=== PATIENT | female | born 1995 | race Caucasian/White ===

== ENCOUNTER 2022-03-26 12:17 | Inpatient (IN) | payer OTHER ==
[~2022-03-26] VITALS: Ht 165.1 cm; Wt 96.2 kg
--- NOTE | 2022-03-26 12:20 | NUR ---
Pt brought by self, A&Ox4, pt presents to ER with congestion ,weakness, bodyaches, N/V, HR 140, skin pink and warm, cap refill <3, respirations even and unlabored, will cont to monitor.
[2022-03-26 12:28] VITALS: BP_SYST 135
--- NOTE | 2022-03-26 15:00 | NUR ---
# 22 gauge angiocath placed to LEFT ANTECUBITAL. Use of asceptic technique. Opsite placed over site. Blood return noted. Blood for lab drawn from site. Flushed with 10 cc of normal saline. No evidence of infiltration noted. Patient tolerated well.
--- NOTE | 2022-03-26 15:40 | NUR ---
NASAL SWAB COLLECTED FROM BILATERAL NARES DELIVERED SPECIMEN TO LAB FOR ANALYSIS.
[2022-03-26] MEDS ORDERED: NACL 0.9% 1,000 ML IV ONE ×2 (15:45→19:00)
[2022-03-26] MEDS ORDERED: ONDANSETRON HCL 4 MG/2 ML VIAL IVP ONE ×2 (15:45→19:15)
--- NOTE | 2022-03-26 16:00 | NUR ---
Medicated per MD orders. IVF infusing with no s/s of infiltration at this time. Will cont to monitor
[2022-03-26 16:21] LABS: HEMATOCRIT 45.2 % (36-48); HEMOGLOBIN 15.6 g/dL (12.0-16.0); MEAN CORPUSCULAR HEMOGLOBIN 30 pg (27-31); MEAN CORPUSCULAR HGB CONC 34 % (32-36); MEAN CORPUSCULAR VOLUME 88 fL (79.0-98.0); PLATELET COUNT (AUTO) 371 K/uL (130-430); RED BLOOD CELL COUNT(AUTO) 5.13 MIL/uL (4.2-6.2); RED CELL DISTRIBUTION WIDTH 13.6 % (9.0-15.0)
[2022-03-26 16:40] LABS: CALCIUM 10.1 mg/dL (8.4-11.0); CREATININE 1.82 mg/dL (0.55-1.30)
[2022-03-26 16:44] LABS: ALBUMIN 3.7 g/dL (3.4-4.8); TOTAL BILIRUBIN 3.1 mg/dL (0.0-1.0)
[2022-03-26 17:32] LABS: BAND % (MANUAL) 7 % (0-6); BASOPHILS % (MANUAL) 0 % (0-2); EOSINOPHILS % (MANUAL) 0 % (0-7); LYMPHOCYTES % (MANUAL) 20 % (20-46); MONOCYTES % (MANUAL) 15 % (0-11)
--- NOTE | 2022-03-26 19:01 | NUR ---
Pt afebrile, nasal and throat swabs collected; delivered to lab for analysis.
[2022-03-26] MEDS ORDERED: DIPHENHYDRAMINE INJ 50 MG/ML VIAL IVP ONE (19:15)
[2022-03-26] MEDS ORDERED: METOCLOPRAMIDE HCL 10 MG/2 ML VIAL IVP ONE (19:15)
[2022-03-26] MEDS ORDERED: cefTRIAXone 1 GM in D5W 50 ML IV ONE (20:30)
[2022-03-26] MEDS ORDERED: ACETAMINOPHEN 325 MG TABLET PO ONE (20:45)
[2022-03-26] MEDS ORDERED: HYDROCORTISONE SOD SUCC 100 MG/2 ML VIAL IVP ONE (20:45)
--- NOTE | 2022-03-26 20:56 | NUR ---
Admit bed requested Patient will be admitted to care of Dr Beebe .. Admitted to Tele unit. Diagnosis Sepsis Inpatient (Yes or No) No Observation (Yes or No) No Orientation concerns or request close to nursing station (Yes or No) No Covid Status N/A On vent or bipap N/A Isolation requirements N/A Needs a sitter N/A From Home (Yes or if No enter name of facility) Yes Requires Dialysis (Yes or No) No Med Rec Completed (Yes of No) No
--- NOTE | 2022-03-26 21:40 | NUR ---
REC PT IN BED 8. PT AWAKE, A&O X4, LETHARGIC BUT FOLLOWING COMMANDS. 2 BOLUS NOT COMPLETED, NEW IV ACCESS TO THE LEFT WRIST. HR 133, OTHER VS WNL.
[2022-03-26] MEDS ORDERED: ACETAMINOPHEN 500 MG TABLET PO ONE (21:45)
--- NOTE | 2022-03-26 21:56 | NUR ---
Patient to ER bed 08 to gown for evaluation. Side rails up.
--- NOTE | 2022-03-26 22:00 | NUR ---
PT UNABLE TO PROVIDE MEDICATION LIST. REQUESTED THAT MOTHER BRING LIST IN THE MORNING.
[2022-03-26] MEDS ORDERED: cefTRIAXone 1 GM VIAL ONE (22:28)
[2022-03-26] MEDS ORDERED: ZOLPIDEM TARTRATE 5 MG TABLET PO PRN (22:30)
[2022-03-26] MEDS ORDERED: MUPIROCIN 2% TOPICAL OINTMENT 22 GM NS PRN (22:30)
[2022-03-26] MEDS ORDERED: NALOXONE HCL 0.4 MG/ML AMP (NARCAN) IVP PRN ×2 (22:30)
[2022-03-26] MEDS ORDERED: LORazepam 2 MG/ML VIAL IVP PRN (22:30)
[2022-03-26] MEDS ORDERED: MAGNESIUM SULFATE 50 ML IV PRN (22:30)
[2022-03-26] MEDS ORDERED: DOCUSATE SODIUM 100 MG CAPSULE PO PRN (22:30)
[2022-03-26] MEDS ORDERED: POTASSIUM CHLORIDE 20 MEQ TAB.PRT.SR PO PRN (22:30)
[2022-03-26] MEDS ORDERED: ONDANSETRON HCL 4 MG/2 ML VIAL IVP PRN (22:30)
[2022-03-26] MEDS ORDERED: AMOXICILLIN 250 MG/5 ML, 150 ML BTL PO SCH (22:30)
[2022-03-26] MEDS ORDERED: MORPHINE 2 MG/ML INJ. SYRINGE IVP PRN ×2 (22:30)
--- NOTE | 2022-03-26 23:00 | NUR ---
Admitting made aware that pt still refusing to provide urine sample. does not wish to stright cath or insert humphreys, requested that we continue to encourage pt to provide sample.
[2022-03-26] MEDS: NACL 0.9% 1,000 ML IV SCH (23:29)
--- NOTE | 2022-03-27 00:17 | NUR ---
PT AWAKE IN BED, PT STATES SHE FEELS MUCH BETTER AFTER FLUIDS ADMINISTRATION. PT APPEARS MORE ALERT AND ACTIVE THEN IN EARLIER ASSESMENT.
--- NOTE | 2022-03-27 01:20 | NUR ---
Patient will be admitted to care of DR. COLLAZO. Admitted to TELEMETRY unit. Will go to room 129b. Belongings list completed. Complete and up to date summary report printed. SBAR report given TO RACHELE ALSTON at bedside with opportunity for questions.
--- NOTE | 2022-03-27 01:40 | NUR ---
ADMISSION NOTE Received patient from ER via gurney. Patient admitted with diagnosis of sepsis secondary to group A beta hemolytic streptococcus. Patient is awake, alert, oriented X4. Patient and family oriented to hospital room, call light, toileting, pain management and safety-teach back done.Personal belongings checked and Belongings List documented. Call light within reach.
[2022-03-27 02:05] VITALS: BP_SYST 111
--- NOTE | 2022-03-27 04:22 | NUR ---
CONSULTATION PAGED/CALLED Reason for Consultation: STREP INFECTION Person Who was Notified: JACEY Consulting Physician: GERSON Zipper Repairer Specialty: Ordering Physician: ZAY
[2022-03-27] MEDS ORDERED: AMOXICILLIN 500 MG CAPSULE PO SCH (06:00)
[2022-03-27 06:04] LABS: BILIRUBIN,URINE 1+ (NEGATIVE); BLOOD, URINE 3+ (NEGATIVE); CLARITY/URINE SL CLOUDY (CLEAR); COLOR,URINE YELLOW (YELLOW); GLUCOSE,URINE NEGATIVE (NEGATIVE); KETONES,URINE 1+ (NEGATIVE); LEUKOCYTE ESTERASE ,URINE 1+ (NEGATIVE); NITRITE, URINE NEGATIVE (NEGATIVE); PH,URINE 5.5 (5.0-8.0); PROTEIN URINE NEGATIVE (NEGATIVE); UROBILINOGEN,URINE 0.2 (0.2-1.0)
[2022-03-27 06:19] LABS: BACTERIA,URINE MANY /HPF (None Seen); WBC,URINE 50-80 /HPF (0-3)
[2022-03-27 06:43] LABS: BASOPHILS % (AUTO) 0.2 % (0.0-2.0); EOSINOPHILS % (AUTO) 0.1 % (0.0-4.0); HEMATOCRIT 38.3 % (36-48); LYMPHOCYTES # (AUTO) 1.3 K/uL (1.0-5.5); LYMPHOCYTES % (AUTO) 7.5 % (20.5-51.5); MEAN CORPUSCULAR HEMOGLOBIN 30 pg (27-31); MEAN CORPUSCULAR HGB CONC 34 % (32-36); MEAN CORPUSCULAR VOLUME 88 fL (79.0-98.0); MONOCYTES # (AUTO) 0.5 K/uL (0.0-1.0); MONOCYTES % (AUTO) 2.7 % (1.7-9.3); NEUTROPHILS # (AUTO) 15.4 K/uL (1.8-7.7); NEUTROPHILS % (AUTO) 89.5 % (40.0-70.0); PLATELET COUNT (AUTO) 269 K/uL (130-430); RED BLOOD CELL COUNT(AUTO) 4.35 MIL/uL (4.2-6.2); RED CELL DISTRIBUTION WIDTH 13.3 % (9.0-15.0)
--- NOTE | 2022-03-27 06:48 | NUR ---
PATIENT IS NOT IN RESPIRATORY DISTRESS , ALL SAFETY PRECAUTIONS DONE. BED IN LOWEST POSITION, CALL LIGHT IS WITHIN REACH.WILL GIVE AM SHIFT RN BEDSIDE REPORT.
[2022-03-27 07:02] LABS: CALCIUM 9.3 mg/dL (8.4-11.0); CREATININE 0.9 mg/dL (0.55-1.30)
--- NOTE | 2022-03-27 07:20 | NUR ---
RN OPENING NOTE REPORT WAS ENDORSED BY NIGHT NURSE. PATIENT IS AWAKE AND ALERT SITTING UP IN BED. NO SIGNS OF ANY DISTRESS, BREATHING IS EQUAL AND NON LABORED. PATIENT EDUCATED KNIFE GLAZER LIGHT FOR ASSISTANCE. CALL LIGHT IS WITH HER. PATIENT HAS FAMILY AT BEDSIDE.
[2022-03-27 07:34] LABS: WHITE BLOOD COUNT (AUTO) 17.3 K/uL (4.8-10.8)
[2022-03-27 08:04] VITALS: BP_SYST 114
[2022-03-27] MEDS: HYDROCORTISONE 10 MG TABLET (CORTEF) PO SCH ×2 (08:11→21:10)
[2022-03-27] MEDS: NACL 0.9% 1,000 ML IV SCH ×2 (08:12→21:10)
--- NOTE | 2022-03-27 08:14 | NUR ---
medication Patients schedule medication given per order. Patient is awake and alert ambulated to bathroom and back to bed. Patient denies any weakness or dizziness patient has family at bedside. educated chronic disease epidemiologist light for assistance, call light is with her. patient denies any difficulty swallowing. patient has no other needs at this time.
[2022-03-27] MEDS ORDERED: LEVOTHYROXINE SODIUM 0.05 MG TABLET PO ONE (08:15)
--- NOTE | 2022-03-27 08:28 | NUR ---
CONSULTATION PAGED REASON FOR CONSULTATION:INFECTED TONSILS WAS CONSULT CALLED?Y PERSON WHO WAS NOTIFIED:LAMINE CONSULTING PHYSICIAN:DUC MEEHAN VISUAL DESIGNER SPECIALTY:MEASUREMENT DEPARTMENT CHIEF CLERK PHONE NUMBER:[phone] REQUESTING PHYSICIAN:DR.SINGHLAURE[facility] C[facility]AN
--- NOTE | 2022-03-27 08:33 | NUR ---
CONSULTATION PAGED REASON FOR CONSULTATION:JOY'S DISEASE WAS CONSULT CALLED?Y PERSON WHO WAS NOTIFIED:LEFT A VOICEMAIL CONSULTING PHYSICIAN:ANNIE ARSHAD AUTO DRIVER SPECIALTY:ENDO AUTO DRIVER PHONE NUMBER:[phone] REQUESTING PHYSICIAN:[facility]
--- NOTE | 2022-03-27 09:26 | NUR ---
nausea patient complaints of nausea medicated per order. provided also with a emesis bag. patient educated to use call light for assistance, call light is with her. patient has no other needs at this time.
[2022-03-27] MEDS ORDERED: cefTRIAXone 1 GM in D5W 50 ML IV SCH (10:00)
[2022-03-27 12:00] VITALS: BP_SYST 97
[2022-03-27] MEDS: AMPICILLIN SODIUM/SULBACTAM NA 3 GM in NS 100 ML IV SCH ×3 (12:31→23:20)
--- NOTE | 2022-03-27 12:31 | NUR ---
Transfer request sent to [facility].
--- NOTE | 2022-03-27 12:34 | NUR ---
MEDICATION Addendum: 03/27/22 at 1410 by Amy Interiano RN PATIENTS SCHEDULED MEDICATION GIVEN PER ORDER. PATIENT HAS NO COMPLAINTS AT THIS TIME. CALL LIGHT IS WITH HER. EDUCATED LEATHER COVERER LIGHT FOR ASSISTANCE. PATIENT REQUESTING SOME MORE TAJIK ICE NO NAUSEA AT THIS TIME. CALLED [facility] TO BRING OT ROOM .
[2022-03-27 16:16] VITALS: BP_SYST 92; BP_SYST 97
--- NOTE | 2022-03-27 16:19 | NUR ---
RN ROUNDING DR. ESTEVES AT BED SIDE INFORMED THAT PATIENT IS HAVING DIARRHEA. STATES DUE FROM ANTIBIOTICS. PATIENT INFORMED. PATIENT EDUCATED FIELD AGRONOMIST LIGHT FOR ASSISTANCE. CALL LIGHT IS WITH HER. NO OTHER NEEDS AT THIS TIME.
--- NOTE | 2022-03-27 18:31 | NUR ---
RN CLOSING NOTE PATIENT IS AWAKE AND ALERT LAYING IN BED NO SIGNS OF ANY DISTRESS, BREATHING IS EQUAL AND NON LABORED. PATIENT EDUCATED PLANNER INTERN LIGHT FOR ASSISTANCE. CALL LIGHT IS WITH HER. PATIENT HAS DINNER AT BEDSIDE. NO COMPLAINTS OF NAUSEA AT THIS TIME. NO OTHER NEEDS.
[2022-03-27 19:30] VITALS: BP_SYST 104
--- NOTE | 2022-03-27 19:30 | NUR ---
PM ASSESSMENT; - Patient is awake, alert, oriented X 4. Patient oriented to hospital room, call light, toileting, pain management and safety-teach back done. VSS. IV site patent flushed well w/ NS, no s/s any infiltration noted. Side rails x2,Call light within reach. Discussed poc and all safety measures with pt & parents at bedside. Cont to monitor pt. Addendum: 03/27/22 at 2008 by [facility], RACHELE JEFFREY ADDITIONAL NOTES; After discussed poc, they verbalized understanding. Still waiting for [facility] bed availability to transfer.
[2022-03-27 23:20] VITALS: BP_SYST 101
[2022-03-27] MEDS: ACETAMINOPHEN 325 MG TABLET PO PRN (23:20)
--- NOTE | 2022-03-27 23:20 | NUR ---
ROUNDS; -Pt is resting in bed. Gave Tylenol po for tonsil pain. IVF infusing well. Mother is at bedside. Call light w/in reach. Will reassess pain level w/in an hr. cont to monitor pt.
--- NOTE | 2022-03-28 03:20 | NUR ---
ROUNDS; -Pt is resting in bed comfortably. No s/s any acute distress noted. IVF infusing well. Mother is at bedside. Call light w/in reach. cont to monitor pt.
[2022-03-28] MEDS: AMPICILLIN SODIUM/SULBACTAM NA 3 GM in NS 100 ML IV SCH ×4 (05:10→23:25)
[2022-03-28] MEDS: LEVOTHYROXINE SODIUM 0.05 MG TABLET PO SCH (06:19)
--- NOTE | 2022-03-28 06:32 | NUR ---
CLOSING NOTES; -Pt is resting in bed. NO s/s any acute distress noted. Pt's condition stable. Pt has 2L nc oxy continuously. Side rails x2,Call light within reach. Will endorse to next shift nurse to cont care. Addendum: 03/28/22 at 0635 by [facility], RACHELE RN CORRECTION-Pt doesn't use oxy. Pt is on room air [id number]% r/a.
[2022-03-28 08:00] VITALS: BP_SYST 107
[2022-03-28] MEDS: NACL 0.9% 1,000 ML IV SCH ×2 (08:00→14:30)
[2022-03-28 08:43] LABS: BASOPHILS % (AUTO) 0.5 % (0.0-2.0); EOSINOPHILS # (AUTO) 0.2 K/uL (0.0-0.4); EOSINOPHILS % (AUTO) 2.6 % (0.0-4.0); HEMATOCRIT 33.3 % (36-48); HEMOGLOBIN 11.4 g/dL (12.0-16.0); LYMPHOCYTES # (AUTO) 2.6 K/uL (1.0-5.5); LYMPHOCYTES % (AUTO) 31.8 % (20.5-51.5); MEAN CORPUSCULAR HEMOGLOBIN 30 pg (27-31); MEAN CORPUSCULAR HGB CONC 34 % (32-36); MEAN CORPUSCULAR VOLUME 88 fL (79.0-98.0); MONOCYTES # (AUTO) 0.5 K/uL (0.0-1.0); MONOCYTES % (AUTO) 6.4 % (1.7-9.3); NEUTROPHILS # (AUTO) 4.9 K/uL (1.8-7.7); NEUTROPHILS % (AUTO) 58.7 % (40.0-70.0); PLATELET COUNT (AUTO) 253 K/uL (130-430); RED BLOOD CELL COUNT(AUTO) 3.78 MIL/uL (4.2-6.2); RED CELL DISTRIBUTION WIDTH 13.2 % (9.0-15.0); WHITE BLOOD COUNT (AUTO) 8.3 K/uL (4.8-10.8)
[2022-03-28 08:51] LABS: CALCIUM 8.9 mg/dL (8.4-11.0); CREATININE 0.57 mg/dL (0.55-1.30)
[2022-03-28] MEDS: HYDROCORTISONE 10 MG TABLET (CORTEF) PO SCH ×2 (09:01→21:15)
--- NOTE | 2022-03-28 11:11 | NUR ---
MD: DR ADAMS COVERING FOR DR COLLAZO AT PT BEDSIDE. FAMILY IS AT BEDSIDE. UPDATED FAMILY ON PT CARE PLAN. FAMILY VERBALIZED UNDERSTANDING
--- NOTE | 2022-03-28 11:22 | NUR ---
MD DR ADAMS SAID PT IS STABLE FOR TRANSFER TO [facility] SHOULD THEY CALL. DR ADAMS ORDERING NT CONSULT FOR PT. PT WOULD LIKE TO BE TRANSFERRED TO [facility] IF POSSIBLE.
[2022-03-28 12:00] VITALS: BP_SYST 110
--- NOTE | 2022-03-28 15:01 | NUR ---
: DR BOURGEOISSAYED SAID PT IS CLEAR TO GO HOME. ORDERED TO HAVE HER DIET ADVANCED TO REGULAR FROM CLEAR LIQUID. UPON DISCHARGE HE WANTS HER TO TAKE HYDROCORTISONE 20MG BID FOR 3 DAYS. AFTER THE 3 DAYS PT IS TO RESUME THE DOSE SHE IS CURRENTLY TAKING AT HOME. HE SAID HER THYROID MEDICATIONS REMAIN THE SAME.
--- NOTE | 2022-03-28 15:18 | NUR ---
Dietitian Recommendations * Continue Clear Liquid diet (Ensure Clear TID comes standard w/ this diet; ONS yields 720 kcal/day, 24 gm protein/day) * Consider ST swallow eval for safety of diet advancement if/when medically appropriate LP, MS, RD Please refer to Nutrition Assessment for details. Addendum: 03/28/22 at [address] Amended: Links added.
[2022-03-28 18:03] VITALS: BP_SYST 116
--- NOTE | 2022-03-28 18:10 | NUR ---
CLOSING NOTES: PT SITTING EDGE OF BED WATCHING TV. NO S/S OF DISTRESS OR PAIN REPORTED. BREATHING IS EVEN AND UNLABORED ON RA. IV FLUIDS ARE RUNNING. ALL NEEDS MET AT THIS TIME, SAFETY CHECKS MADE AND CALL LIGHT WITHIN REACH.
[2022-03-28 19:40] VITALS: BP_SYST 108
--- NOTE | 2022-03-28 19:40 | NUR ---
PM ASSESSMENT; - Patient is awake, alert, oriented X 4. Patient oriented to hospital room, call light, toileting, pain management and safety-teach back done. IV site patent flushed well w/ NS, no s/s any infiltration noted. Side rails x2,Call light within reach. Discussed poc and all safety measures with pt verbalized understanding. Still waitinf for [facility] bed availability. Cont to monitor pt.
--- NOTE | 2022-03-28 23:45 | NUR ---
ROUNDS; -PT DENIES ANY CHEST PAIN,SOB,OR ANY ACUTE DISTRESS. VSS. INSERTED NEW IV OF RFA #22, ATTEMPTED X1 GOOD BLOOD RETURNS NOTED AFTER FLUSHED W/ NS, NO S/S ANY INFILTRATION BY NAZARIO. STARTING TO INFUSE ANTBX NOW. PARENTS ARE AT BEDSIDE UPDATED POC VERBALIZED UNDERSTANDING. CALL LIGHT W/IN REACH. CONT TO MONITOR PT.
[2022-03-28 23:46] VITALS: BP_SYST 118
--- NOTE | 2022-03-29 00:09 | NUR ---
CALLED [facility] ASKED FOR A UPDATE THEY SAID HER TRANSFER WAS DENIED DUE TO NOT HAVING ENOUGH CLINICALS . REFAXED THE CLINICALS THAT WE HAVE.
[2022-03-29] MEDS: ACETAMINOPHEN 325 MG TABLET PO PRN ×2 (00:44→16:41)
[2022-03-29] MEDS: NACL 0.9% 1,000 ML IV SCH ×3 (00:45→20:49)
--- NOTE | 2022-03-29 04:16 | NUR ---
ROUNDS; -Pt is asleep. NO s/s any acute distress noted. NS infusing well. Call light w/in reach. cont to monitor pt.
[2022-03-29] MEDS: AMPICILLIN SODIUM/SULBACTAM NA 3 GM in NS 100 ML IV SCH ×4 (05:39→23:05)
[2022-03-29] MEDS: LEVOTHYROXINE SODIUM 0.05 MG TABLET PO SCH (06:25)
--- NOTE | 2022-03-29 06:31 | NUR ---
CLOSING NOTES; -Pt is resting in bed. NO s/s any acute distress noted. Pt's condition stable. IVF infusing well. Side rails x2,Call light within reach. Will endorse to next shift nurse to cont care.
[2022-03-29 08:00] VITALS: BP_SYST 104
[2022-03-29] MEDS: HYDROCORTISONE 10 MG TABLET (CORTEF) PO SCH ×2 (08:36→20:42)
[2022-03-29 09:37] LABS: BASOPHILS % (AUTO) 0.4 % (0.0-2.0); EOSINOPHILS # (AUTO) 0.2 K/uL (0.0-0.4); EOSINOPHILS % (AUTO) 2.7 % (0.0-4.0); HEMATOCRIT 31.3 % (36-48); HEMOGLOBIN 10.7 g/dL (12.0-16.0); LYMPHOCYTES # (AUTO) 2.8 K/uL (1.0-5.5); LYMPHOCYTES % (AUTO) 42.2 % (20.5-51.5); MEAN CORPUSCULAR HEMOGLOBIN 30 pg (27-31); MEAN CORPUSCULAR HGB CONC 34 % (32-36); MEAN CORPUSCULAR VOLUME 88 fL (79.0-98.0); MONOCYTES # (AUTO) 0.4 K/uL (0.0-1.0); MONOCYTES % (AUTO) 6.5 % (1.7-9.3); NEUTROPHILS # (AUTO) 3.2 K/uL (1.8-7.7); NEUTROPHILS % (AUTO) 48.2 % (40.0-70.0); PLATELET COUNT (AUTO) 253 K/uL (130-430); RED BLOOD CELL COUNT(AUTO) 3.56 MIL/uL (4.2-6.2); RED CELL DISTRIBUTION WIDTH 13.4 % (9.0-15.0); WHITE BLOOD COUNT (AUTO) 6.7 K/uL (4.8-10.8)
[2022-03-29 10:33] LABS: CALCIUM 8.6 mg/dL (8.4-11.0); CREATININE 0.5 mg/dL (0.55-1.30); THYROID STIMULATING HORMONE 4.49 uIu/mL (0.34-4.82)
[2022-03-29 12:13] VITALS: BP_SYST 122
--- NOTE | 2022-03-29 13:39 | NUR ---
CONSULTATION PAGED REASON FOR CONSULTATION:ABSCESS WAS CONSULT CALLED?Y PERSON WHO WAS NOTIFIED:TRICE CONSULTING PHYSICIAN:OLIVER COOK [employer] TRUCK DRIVER SPECIALTY:STRATEGY ANALYST PHONE NUMBER:[phone] REQUESTING PHYSICIAN:RENE VILLANUEVA
--- NOTE | 2022-03-29 15:16 | NUR ---
CM: Per [place] on 03/29/22 She mentions that she is feeling better. If stable tomorrow can d/c to f/u w/ specialist outpatient w/ [facility]. c/w unasyn and may need PO medication upon d/c. c/w specialist recs.
[2022-03-29 17:21] VITALS: BP_SYST 110
--- NOTE | 2022-03-29 18:20 | NUR ---
CLOSING NOTE: PT IS A/A/OX4. PENDING NEW CONSULT FOR ENT MD. ANTIBIOTIC THERAPY ORDERED AND PRN TYLENOL PROVIDED TO PT FOR THROAT PAIN X1. ALL CARE NEEDS MET AT THIS TIME. FALL PROTOCOL. CALL LIGHT W/IN REACH. BED IN LOW POSITION. WILL ENDORSE CARE TO PM NURSE.
[2022-03-29 19:25] VITALS: BP_SYST 121
--- NOTE | 2022-03-29 19:25 | NUR ---
PM ASSESSMENT; - Patient is awake, alert, oriented X 4. Patient oriented to hospital room, call light, toileting, pain management and safety-teach back done. IV site patent flushed well w/ NS, no s/s any infiltration noted. Side rails x2,Call light within reach. Discussed poc and all safety measures with pt and parents at bedside , they verbalized understanding. Cont to monitor pt.
[2022-03-29 23:01] VITALS: BP_SYST 136
--- NOTE | 2022-03-29 23:10 | NUR ---
ROUNDS; -Pt returned from bathroom to bed safely. VSS. Pt denies any chest pain,pain,sob,or any acute distress. Infusing antibotic. IVF infusing well, no s/s any infiltration noted. Call light w/in reach. Cont to monitor pt.
--- NOTE | 2022-03-30 03:58 | NUR ---
ROUNDS; -Pt is asleep. NO s/s any acute distress noted. Call light within reach, bed alarmed, side rails x2. Cont to monitor pt.
[2022-03-30] MEDS: LEVOTHYROXINE SODIUM 0.05 MG TABLET PO SCH (06:42)
[2022-03-30] MEDS: AMPICILLIN SODIUM/SULBACTAM NA 3 GM in NS 100 ML IV SCH ×3 (06:42→18:58)
[2022-03-30 07:21] LABS: BASOPHILS % (AUTO) 0.8 % (0.0-2.0); EOSINOPHILS # (AUTO) 0.1 K/uL (0.0-0.4); EOSINOPHILS % (AUTO) 1.4 % (0.0-4.0); HEMATOCRIT 31.7 % (36-48); LYMPHOCYTES # (AUTO) 2.8 K/uL (1.0-5.5); LYMPHOCYTES % (AUTO) 43.6 % (20.5-51.5); MEAN CORPUSCULAR HEMOGLOBIN 30 pg (27-31); MEAN CORPUSCULAR HGB CONC 35 % (32-36); MEAN CORPUSCULAR VOLUME 87 fL (79.0-98.0); MONOCYTES # (AUTO) 0.4 K/uL (0.0-1.0); MONOCYTES % (AUTO) 6.6 % (1.7-9.3); NEUTROPHILS % (AUTO) 47.6 % (40.0-70.0); PLATELET COUNT (AUTO) 266 K/uL (130-430); RED BLOOD CELL COUNT(AUTO) 3.65 MIL/uL (4.2-6.2); RED CELL DISTRIBUTION WIDTH 12.9 % (9.0-15.0); WHITE BLOOD COUNT (AUTO) 6.3 K/uL (4.8-10.8)
[2022-03-30 07:47] LABS: CALCIUM 8.7 mg/dL (8.4-11.0); CREATININE 0.4 mg/dL (0.55-1.30)
[2022-03-30 11:06] LABS: T4 (THYROXINE) 8.1 ug/dL (4.5-12.0)
[2022-03-30 11:16] VITALS: BP_SYST 113
[2022-03-30] MEDS ORDERED: SYN50 PO (11:30)
[2022-03-30] MEDS ORDERED: AMOX-423 PO (11:30)
[2022-03-30] MEDS ORDERED: HYDR20TA PO (11:32)
[2022-03-30] MEDS: NACL 0.9% 1,000 ML IV SCH ×2 (12:05→16:30)
[2022-03-30] MEDS: HYDROCORTISONE 10 MG TABLET (CORTEF) PO SCH (12:05)
[2022-03-30 14:20] VITALS: BP_SYST 113
[2022-03-30 15:30] VITALS: BP_SYST 115
--- NOTE | 2022-03-30 15:30 | NUR ---
DISCHARGE SUMMARY: Patient was met by family members and was given final medications and discharge instructions prior to RN discontinuing IV. Patient dressed and then RN reviewed disease process as well and advised patient to follow up with [facility] physician within a week. Patient understood directions. Patient wheeled to private auto at front of ER. Patient go into vehicle showing no signs or symptoms of acute distress upon discharge.
== END 2022-03-30 15:00 | disposition home or self-care (01) | DRG 871 ==
LOC: SED 12:17 → STU 20:54 → SMU 03-30 11:20
PROVIDERS: ADMIT General Practice; ATTEND General Practice
DX: A41.9 Sepsis, unspecified organism (principal); G93.41 Metabolic encephalopathy; N17.0 Acute kidney failure with tubular necrosis; N39.0 Urinary tract infection, site not specified; E27.1 Primary adrenocortical insufficiency; Z20.822 Contact with and (suspected) exposure to COVID-19; J02.0 Streptococcal pharyngitis; E66.9 Obesity, unspecified; E03.9 Hypothyroidism, unspecified; Z68.35 Body mass index [BMI] 35.0-35.9, adult
CPT/HCPCS: 36415; 71045; 80048; 80053; 81000; 82306; 83037; 83605; 83690; 83735; 84436; 84443; 84703; 85007; 85025; 85027; 85651-TC; 86403; 87040; 87086; 96361; 96365; 96375; 96376; 99285; G0378; J0295; J0696; J1200; J1720; J2405; J2765; J7060